=== PATIENT | female | born 1965 | race Caucasian/White ===

== ENCOUNTER 2017-08-20 13:05 | Inpatient (IN) | payer OTHER ==
[~2017-08-20] VITALS: Ht 152.4 cm; Wt 56.7 kg
--- NOTE | 2017-08-20 13:05 | NUR ---
1300--Patient taken to bed 03 via wheelchair.
--- NOTE | 2017-08-20 13:05 | NUR ---
1308--Dr. Mistry at bedside to evaluate patient.
--- NOTE | 2017-08-20 13:15 | NUR ---
52 YO FEMALE BIB FAMILY VIA PRIVATE VEHICLE NON RESPONSIVE. TAKEN TO BED 3 VIA WHEELCHAIR MD AT BEDSIDE. USED SYRINGE FOUND IN BRA. FAMILY N/V/D; SKIN IS PINK/WARM/DRY; LUNGS CLEAR BL; HR EVEN AND REGULAR; PT DENIES ANY FEVER, CP, SOB, OR COUGH AT THIS TIME; NO C/O PAIN AT THIS TIME; VSS; PATIENT POSITIONED FOR COMFORT; HOB ELEVATED; BEDRAILS UP X2; BED DOWN. ER MD MADE AWARE OF PT STATUS.
[2017-08-20] MEDS ORDERED: NALOXONE 0.4 MG/ML VIAL ONE (13:19)
[2017-08-20] MEDS ORDERED: NACL 0.9% 1,000 ML IV ONE ×2 (13:20→14:20)
[2017-08-20] MEDS ORDERED: ONDANSETRON 4 MG/2 ML VIAL IVP ONE (13:20)
[2017-08-20] MEDS ORDERED: NALOXONE PFS 2 MG/2 ML SYR IVP ONE (13:20)
[2017-08-20 13:22] VITALS: BP 126/98
[2017-08-20] MEDS ORDERED: NALOXONE PFS 2 MG/2 ML SYR ONE (13:28)
[2017-08-20] MEDS ORDERED: ONDANSETRON 4 MG/2 ML VIAL ONE (13:29)
--- NOTE | 2017-08-20 13:33 | NUR ---
XRAY at bedside.
[2017-08-20 13:38] LABS: BASOPHILS # (AUTO) 0.3 K/uL (0.00-0.22); EOSINOPHILS # (AUTO) 0.2 K/uL (0-0.4); LYMPHOCYTES # (AUTO) 2.4 K/uL (2.5-16.5); MEAN CORPUSCULAR HEMOGLOBIN 26 pg (27-31); MEAN CORPUSCULAR HGB CONC 32 g/dL (33-37); MEAN CORPUSCULAR VOLUME 80 fL (80-94); MONOCYTES # (AUTO) 0.7 K/uL (0.8-1.0); NEUTROPHILS # (AUTO) 4.7 K/uL (1.8-7.7); PLATELET COUNT (AUTO) 486 K/uL (140-450); RED BLOOD CELL COUNT(AUTO) 4.27 MIL/uL (4.20-5.40); RED CELL DISTRIBUTION WIDTH 17.7 % (11.6-13.7); WHITE BLOOD COUNT (AUTO) 8.3 K/uL (4.8-10.8)
[2017-08-20 13:41] LABS: BILIRUBIN,URINE NEGATIVE (NEGATIVE); BLOOD, URINE NEGATIVE (NEGATIVE); COLOR,URINE YELLOW (YELLOW); LEUKOCYTE ESTERASE ,URINE 1+ (NEGATIVE); NITRITE, URINE NEGATIVE (NEGATIVE); PH,URINE 7.5 (5.0-9.0); UGLUCOSE NEGATIVE (NEGATIVE)
[2017-08-20] MEDS ORDERED: cefTRIAXone 1,000 MG VIAL ONE (13:58)
[2017-08-20 13:59] LABS: BARBITURATE, URINE NEG. ng/ml (NEG <=200); BENZODIAZEPINE, URINE POS. ng/mL (NEG <=200); CANNABINOID, URINE NEG. ng/mL (NEG <=50); COCAINE, URINE NEG. ng/mL (NEG <=300); OPIATE, URINE POS. ng/mL (NEG <=2000); PHENCYCLIDINE SCREEN,URINE POS. ng/mL (NEG <=25)
[2017-08-20 14:02] LABS: APPEARANCE,URINE HAZY (CLEAR)
[2017-08-20 14:03] LABS: ALBUMIN 2.9 g/dL (3.4-5.0); ANION GAP 9.8 (8-16); ASPARTATE AMINOTRANSFERASE 22 U/L (15-37); CHLORIDE 106 mmol/L (98-107); CREATININE 0.8 mg/dL (0.6-1.3); GFR ARICAN-AMERICAN 96 mL/min (>90); GLUCOSE 98 mg/dL (74-106); POTASSIUM 3.8 mmol/L (3.5-5.1); SALICYLATE < 2.8 mg/dL (2.8-20.0); SODIUM SERUM 143 mmol/L (136-145); TOTAL BILIRUBIN 0.3 mg/dL (0.0-1.0); UREA NITROGEN, BLOOD 14 mg/dL (7-18)
[2017-08-20 14:03] LABS: RBC,URINE NONE SEEN /HPF (0-5); WBC,URINE 60-80 /HPF (0-5)
[2017-08-20 14:04] LABS: ACETAMINOPHEN < 0.5 ug/ml (10-30)
[2017-08-20] MEDS ORDERED: FLUMAZENIL 0.5 MG/5 ML VIAL IVP ONE (14:10)
[2017-08-20] MEDS: NACL 0.9% 1,000 ML IV SCH ×2 (14:28→21:41)
[2017-08-20] MEDS ORDERED: ONDANSETRON 4 MG/2 ML VIAL IVP PRN (14:30)
[2017-08-20] MEDS ORDERED: ACETAMINOPHEN 325 MG TAB PO PRN (14:30)
--- NOTE | 2017-08-20 14:36 | NUR ---
Patient will be admitted to care of DR NELSON. Admited to TELE. Will go to room 124A. Belongings list completed. Report to JG CRUZ.
--- NOTE | 2017-08-20 15:01 | NUR ---
RUMACICON NOT GIVEN PER DR ERWIN PT AWAKE MORE RESPONSIVE
[2017-08-20 15:12] LABS: PROTHROMBIN TIME 9.7 secs (10.8-13.4)
--- NOTE | 2017-08-20 15:12 | NUR ---
PT ARRIVED FROM ER IN [facility], PT DROWSY BUT AROUSABLE, ABLE TO ROLL HERSELF OVER FROM [facility] TO BED, ORIENTED X2, SPEAKS WITH SLURRED SPEECH, FALLS RIGHT BACK TO SLEEP, RESP EVEN UNLABORED ON ROOM AIR, SKIN WARM DRY COLOR WNL, VITALS SIGNS STABLE, PT PLACED ON MONITOR, IVF STARTED TO RIGHT FA IV SITE CLEAR, MRSA NARE COLLECTED, PT WITH SCABS TO BILAT INNER CALFS, SWELLING/ERYTHEMA TO LEFT LATERAL THIGH, MULTIPLE HEALING ABRASIONS THROUGH OUT THE BODY, SURGICALLY IMPLANTED CIRCULAR PUMP NOTED TO LEFT LOWER ABD, (NON-FUNCTIONING MORPHINE PUMP PER MD),PT ORIENTED TO ROOM AND FLOOR, CALL BRADY WITHIN REACH, SIDE RAILS UP, BED LOCKED IN LOW POSITION, PLAN OF CARE DISCUSSED PT VERBALIZED UNDERSTANDING, WILL CONTINUE TO MONITOR.
[2017-08-20 15:20] LABS: CHOL/HDL RATIO 3.1 (1-4.5); FREE T4 (FREE THYROXINE) 1.2 ng/dL (0.76-1.46); MAGNESIUM 1.8 mg/dL (1.8-2.4); PHOSPHORUS 4.2 mg/dL (2.5-4.9); THYROID STIMULATING HORMONE 4.06 uIU/mL (0.34-3.74)
--- NOTE | 2017-08-20 15:43 | NUR ---
"/FIANCE" TO BEDSIDE.
[2017-08-20 15:47] VITALS: BP 98/58
[2017-08-20] MEDS ORDERED: LORazepam 2 MG/ML VIAL IM/IVP PRN ×2 (16:05→16:50)
[2017-08-20] MEDS: LACTOBACILLUS RHAMNOSUS GG 1 EACH CAP PO SCH (16:10)
--- NOTE | 2017-08-20 16:30 | NUR ---
DR RITTER AT BEDSIDE.
--- NOTE | 2017-08-20 16:45 | NUR ---
PT UP OUT OF BED AMBULATED WITH ASSIST TO BATHROOM. GAIT SLIGHTLY UNSTEADY, PT INSTRUCTED TO CALL FOR ASSISTANCE WHEN SHE NEEDS TO GO TO BATHROOM, PT VERBALIZED FULL UNDERSTANDING, WILL CONTINUE TO MONITOR.
--- NOTE | 2017-08-20 19:25 | NUR ---
REPORT GIVEN TO TIMBER HAND NURSE, PT IN STABLE CONDITION.
--- NOTE | 2017-08-20 19:26 | NUR ---
RECEIVED BEDSIDE REPORT FROM DAY SHIFT NURSE ANTHONY RN, PT RESTING, NO DISTRESS NOTED, NO SOB, AAOX4, SIGNIFICANT OTHER BY BEDSIDE, IV TO THE R FA 20G RUNNING NS @150ML/HR. SKIN INTACT WITH SCABS ON BLE, L LATERAL THIGH SWELLING. INITIAL ASSESSMENT DONE, ALL SAFETY PRECAUTION MET. CALL LIGHT WITHIN REACH, WILL CONTINUE TO MONITOR.
[2017-08-20 20:00] VITALS: BP 98/60
[2017-08-20] MEDS: DOCUSATE SODIUM 100 MG GELCAP PO SCH (21:55)
--- NOTE | 2017-08-20 21:58 | NUR ---
DUE MEDICATION GIVEN, PT TOLERATED WELL, NO DISTRESS NOTED,CALL LIGHT WITHIN REACH, WILL CONTINUE TO MONITOR.
[2017-08-20] MEDS: MORPHINE SULFATE 2 MG/ML SYR IVP PRN (23:56)
[2017-08-21] VITALS: BP 100/69
--- NOTE | 2017-08-21 | NUR ---
PT SLEEPING, NO DISTRESS NOTED, CALL LIGHT WITHIN REACH, WILL CONTINUE TO MONITOR.
[2017-08-21] MEDS: NACL 0.9% 1,000 ML IV SCH ×5 (03:29→19:16)
--- NOTE | 2017-08-21 03:29 | NUR ---
DUE MEDICATION GIVEN, PT TOLERATED WELL, NO DISTRESS NOTED, CALL LIGHT WITHIN REACH.
[2017-08-21 06:14] LABS: BASOPHILS # (AUTO) 0.2 K/uL (0.00-0.22); EOSINOPHILS # (AUTO) 0.2 K/uL (0-0.4); EOSINOPHILS % (AUTO) 2.3 % (0.0-4.0); HEMATOCRIT 32.7 % (36-48); HEMOGLOBIN 10.5 g/dL (12.0-16.0); LYMPHOCYTES # (AUTO) 2.5 K/uL (2.5-16.5); LYMPHOCYTES % (AUTO) 25.7 % (20.5-51.1); MEAN CORPUSCULAR HEMOGLOBIN 26 pg (27-31); MEAN CORPUSCULAR HGB CONC 32 g/dL (33-37); MEAN CORPUSCULAR VOLUME 82 fL (80-94); MONOCYTES # (AUTO) 1.2 K/uL (0.8-1.0); MONOCYTES % (AUTO) 12.1 % (1.7-9.3); NEUTROPHILS # (AUTO) 5.5 K/uL (1.8-7.7); NEUTROPHILS % (AUTO) 57.9 % (42.2-75.2); PLATELET COUNT (AUTO) 474 K/uL (140-450); RED BLOOD CELL COUNT(AUTO) 3.98 MIL/uL (4.20-5.40); RED CELL DISTRIBUTION WIDTH 17.8 % (11.6-13.7); WHITE BLOOD COUNT (AUTO) 9.6 K/uL (4.8-10.8)
[2017-08-21 06:33] LABS: ANION GAP 10.6 (8-16); CARBON DIOXIDE 29.2 mmol/L (21-32); CREATININE 0.7 mg/dL (0.6-1.3); POTASSIUM 3.8 mmol/L (3.5-5.1)
[2017-08-21 06:38] LABS: MAGNESIUM 1.8 mg/dL (1.8-2.4); PHOSPHORUS 3.7 mg/dL (2.5-4.9)
[2017-08-21] MEDS: MORPHINE SULFATE 2 MG/ML SYR IVP PRN ×2 (07:08→13:08)
--- NOTE | 2017-08-21 07:15 | NUR ---
ENDORSED PT TO DAY SHIFT NURSE ANTHONY RN. PT RESTING NO DISTRESS NOTED, STABLE.
--- NOTE | 2017-08-21 07:20 | NUR ---
ENDORSEMENT RECEIVED FROM LIBRARY CLERK TALKING BOOKS NURSE. PATIENT IS STABLE. RESPIRATION EVEN, UNLABOR. SKIN WARM AND DRY TO THE TOUCH. CALL LIGHT WITHIN REACH. WILL CONTINUE TO MONITOR
[2017-08-21 08:00] VITALS: BP 125/72
--- NOTE | 2017-08-21 08:00 | NUR ---
PATIENT AWAKE, ALERT, ORIENTE X 4. PUPILS EQUAL REACTIVE TO LIGHT. RESPIRATION EVEN, LUNGS SOUND CLEAR THROUGHOUT. CARDIAC WITH S1, S2 PRESENT. BOWEL SOUND ACTIVE 4 QUADRANTS. SKIN DRY AND WARM. IV 20G RIGHT FOREARM, PATENT AND INTACT WITH NS INFUSING AT 150 ML/HR. DENIED OF PAIN AT THIS TIME. CALL LIGHT WITHIN REACH. WILL CONTINUE TO MONITOR
--- NOTE | 2017-08-21 08:45 | NUR ---
PATIENT HAS BEEN SCREENED AND CATEGORIZED LOW NUTRITION RISK. PATIENT WILL BE SEEN WITHIN 7 DAYS OF ADMISSION. 08/27/[address]
[2017-08-21] MEDS: ATORVASTATIN 20 MG TAB PO SCH (08:58)
[2017-08-21] MEDS: ASCORBIC ACID 500 MG TAB PO SCH (08:58)
[2017-08-21] MEDS: LACTOBACILLUS RHAMNOSUS GG 1 EACH CAP PO SCH (08:59)
[2017-08-21] MEDS: DOCUSATE SODIUM 100 MG GELCAP PO SCH ×2 (08:59→21:15)
[2017-08-21] MEDS ORDERED: PANTOPRAZOLE 40 MG INJ VIAL IVP SCH (09:00)
[2017-08-21] MEDS ORDERED: FERRIC GLUCONATE 125 MG in NACL 0.9% 100 ML IV SCH (09:00)
[2017-08-21] MEDS: LACTULOSE 20 GM/30 ML UDC PO SCH ×2 (09:02→21:14)
[2017-08-21] MEDS: ASPIRIN 81 MG TAB.CHEW PO SCH (09:02)
--- NOTE | 2017-08-21 10:00 | NUR ---
PATIENT IS SLEEPING COMFORTABLY. NO DISTRESS NOTED. RESPIRATION EVEN, UNLABOR. CALL LIGHT WITHIN REACH. WILL CONTINUE TO MONITOR
[2017-08-21 10:17] LABS: FOLIC ACID 11.5 ng/mL (>3.0)
[2017-08-21 12:00] VITALS: BP 133/87
--- NOTE | 2017-08-21 12:30 | NUR ---
PATIENT WAS BACK AND CT SCAN, AND NOW EATING LUNCH. PATIENT IS STABLE, NO DISTRESS NOTED. RESPIRATION EVEN. CALL LIGHT WITHIN REACH. WILL CONTINUE TO MONITOR
--- NOTE | 2017-08-21 14:22 | NUR ---
PATIENT IS ASLEEP COMFORTABLY. RESPIRATION EVEN, UNLABOR. NO DISTRESS NOTED AT THIS TIME. CALL LIGHT WITHIN REACH. WILL CONTINUE TO MONITOR
--- NOTE | 2017-08-21 14:58 | NUR ---
U/S TECH IS AT BEDSIDE. PATIENT IS STABLE, NO DISTRESS NOTED. WILL CONTINUE TO MONITOR
[2017-08-21] MEDS ORDERED: LIDOCAINE 2% 1000 MG/50 ML VIAL INJ SCH (15:55)
[2017-08-21 16:00] VITALS: BP 132/83
[2017-08-21] MEDS ORDERED: LIDOCAINE/EPI 2% 1:100000 20 ML VIAL INJ SCH (16:05)
--- NOTE | 2017-08-21 16:05 | NUR ---
PATIENT WAS SLEEPING COMFORTABLY, EASILY AROUSABLE. RESPIRATION EVEN, NO DISTRESS NOTED. CALL LIGTH WITHIN REACH. WILL CONTINUE TO MONITOR
[2017-08-21] MEDS ORDERED: FERRIC GLUCONATE 125 MG in NACL 0.9% 100 ML IV ONE (16:25)
[2017-08-21] MEDS ORDERED: MAGNESIUM CITRATE 300 ML BTL PO SCH (17:00)
--- NOTE | 2017-08-21 17:00 | NUR ---
DR. RITTER WAS AT BEDSIDE, DOING I&D. WOUND CULTURE SENT TO LAB
--- NOTE | 2017-08-21 17:59 | NUR ---
PATIENT IS EATING DINNER. RESPIRATION EVEN, NO DISTRESS NOTED. DENIED PAIN AT THIS TIME. IV STILL INFUSING. FAMILY AT BEDSIDE. CALL LIGHT WITHIN REACH. WILL CONTINUE TO MONITOR
[2017-08-21] MEDS: HYDROcodone/APAP 7.5/325 MG 1 TAB PO PRN (19:16)
--- NOTE | 2017-08-21 19:26 | NUR ---
ENDORSEMENT GIVEN TO THE INSIDE POLISHER NURSE. PATIENT IS STABLE. NO DISTRESS NOTED. PAIN MED WAS GIVEN PER ORDER.
--- NOTE | 2017-08-21 19:27 | NUR ---
RECEIVED BEDSIDE REPORT FROM DAY SHIFT NURSE, PT SLEEPING, NO DISTRESS NOTED, NO SOB, AAOX4, IV TO R FA 20G RUNNING NS@150 ML/HR, DRESSING CLEAN DRY AND INTACT, INITIAL ASSESSMENT DONE, SAFETY PRECAUTION MET, CALL LIGHT IN PLACE, SIGNIFICANT OTHER BY BEDSIDE, WILL CONTINUE TO MONITOR.
--- NOTE | 2017-08-21 21:14 | NUR ---
DUE MEDICATION GIVEN, PT TOLERATED WELL, NO DISTRESS NOTED, CALL LIGHT WITHIN REACH, WILL CONTINUE TO MONITOR.
[2017-08-21 23:15] VITALS: BP 123/69
[2017-08-22] VITALS: BP 121/70
--- NOTE | 2017-08-22 | NUR ---
PT C/O OF PAIN ON THE BACK 03/15, V/S WNL, PAIN MEDICATION GIVEN, PT STABLE, NO DISTRESS NOTED, CALL LIGHT WITHIN REACH.
[2017-08-22] MEDS: NACL 0.9% 1,000 ML IV SCH ×4 (01:47→20:48)
--- NOTE | 2017-08-22 02:52 | NUR ---
PT SLEEPING, NO DISTRESS NOTED, CALL LIGHT WITHIN REACH, WILL CONTINUE TO MONITOR.
[2017-08-22 04:00] VITALS: BP 121/76
--- NOTE | 2017-08-22 05:40 | NUR ---
PT SLEEPING, NO DISTRESS NOTED, CALL LIGHT WITHIN REACH, WILL CONTINUE TO MONITOR.
[2017-08-22 06:13] LABS: BASOPHILS # (AUTO) 0.2 K/uL (0.00-0.22); BASOPHILS % (AUTO) 1.8 % (0.0-2.0); EOSINOPHILS # (AUTO) 0.2 K/uL (0-0.4); EOSINOPHILS % (AUTO) 1.7 % (0.0-4.0); HEMATOCRIT 33.3 % (36-48); HEMOGLOBIN 10.9 g/dL (12.0-16.0); LYMPHOCYTES # (AUTO) 2.3 K/uL (2.5-16.5); LYMPHOCYTES % (AUTO) 19.7 % (20.5-51.1); MEAN CORPUSCULAR HEMOGLOBIN 27 pg (27-31); MEAN CORPUSCULAR HGB CONC 33 g/dL (33-37); MEAN CORPUSCULAR VOLUME 81 fL (80-94); MONOCYTES % (AUTO) 8.2 % (1.7-9.3); NEUTROPHILS % (AUTO) 68.6 % (42.2-75.2); PLATELET COUNT (AUTO) 497 K/uL (140-450); RED CELL DISTRIBUTION WIDTH 17.9 % (11.6-13.7); WHITE BLOOD COUNT (AUTO) 11.7 K/uL (4.8-10.8)
[2017-08-22 06:25] LABS: ANION GAP 13.5 (8-16); CARBON DIOXIDE 24.6 mmol/L (21-32); CREATININE 0.6 mg/dL (0.6-1.3); POTASSIUM 3.1 mmol/L (3.5-5.1)
[2017-08-22 06:28] LABS: MAGNESIUM 1.6 mg/dL (1.8-2.4); PHOSPHORUS 3.4 mg/dL (2.5-4.9)
--- NOTE | 2017-08-22 07:03 | NUR ---
GAVE BEDSIDE REPORT TO DAY SHIFT NURSE, ENDORSED PLAN OF CARE TO RN, PT AMBULATES TO THE BATHROOM AND BACK TO BED, TOLERATED WELL, PT STABLE, NO DISTRESS NOTED.
--- NOTE | 2017-08-22 07:05 | NUR ---
RECEIVED REPORT FROM NIGHT RN, PT IN STABLE CONDITION, A/O X 4, PT LYING IN BED ON RA, PT DENIES ANY PAIN, NO S/S OF ACUTE DISTRESS, IV PATENT AND INTACT, PLAN OF CARE DISCUSSED WITH PT, PT VERBALIZED UNDERSTANDING, SAFETY/ SEIZURE PRECAUTIONS TAKEN, CALL LIGHT WITHIN REACH, WILL CONT TO MONITOR.
[2017-08-22 07:52] VITALS: BP 144/92
[2017-08-22] MEDS ORDERED: FERROUS SULFATE 325 MG TABEC PO SCH (08:00)
[2017-08-22] MEDS: LACTOBACILLUS RHAMNOSUS GG 1 EACH CAP PO SCH (08:35)
[2017-08-22] MEDS: ASCORBIC ACID 500 MG TAB PO SCH (08:35)
[2017-08-22] MEDS: SERTRALINE 50 MG TAB PO SCH (08:35)
[2017-08-22] MEDS: ATORVASTATIN 20 MG TAB PO SCH (08:35)
[2017-08-22] MEDS: ASPIRIN 81 MG TAB.CHEW PO SCH (08:35)
[2017-08-22] MEDS: DOCUSATE SODIUM 100 MG GELCAP PO SCH ×2 (08:35→20:48)
[2017-08-22] MEDS: LACTULOSE 20 GM/30 ML UDC PO SCH ×2 (08:36→20:47)
[2017-08-22] MEDS: FERROUS SULFATE 325 MG TABEC PO SCH (08:36)
--- NOTE | 2017-08-22 08:44 | NUR ---
DUE MEDICATIONS GIVEN WITH EDUCATION, PT VERBALIZED UNDERSTANDING, PT TOLERATED WELL, CALL LIGHT WITHIN REACH, WILL CONT TO MONITOR.
[2017-08-22] MEDS ORDERED: ASCORBIC ACID 500 MG TAB PO SCH (09:00)
[2017-08-22] MEDS ORDERED: POTASSIUM CHLORIDE 10 MEQ TABER PO SCH (09:50)
[2017-08-22] MEDS ORDERED: POTASSIUM CHLORIDE 40 MEQ, LIDOCAINE 1% 25 MG in NACL 0.9% 250 ML IV ONE (10:30)
--- NOTE | 2017-08-22 11:55 | NUR ---
PT SLEEPING IN BED ON RA, NO S/S OF ACUTE DISTRESS, CALL LIGHT WITHIN REACH, WILL CONT TO MONITOR.
--- NOTE | 2017-08-22 13:00 | NUR ---
WOUND CARE DONE ORDERED, PT TOLERATED WELL.
--- NOTE | 2017-08-22 15:40 | NUR ---
SPOKE TO PATIENT AT BEDSIDE REGARDING DISCHARGE PLAN . PER PATIENT SHE LIVES WITH FRIEND ,HAS A CANE . FRIENDS WILL PROVIDE TRANSPORT
[2017-08-22 16:00] VITALS: BP 128/86
--- NOTE | 2017-08-22 16:05 | NUR ---
PT SLEEPING IN BED ON RA, NO S/S OF ACUTE DISTRESS, IV PATENT AND INTACT, WILL CONT TO MONITOR.
[2017-08-22] MEDS: HYDROcodone/APAP 7.5/325 MG 1 TAB PO PRN ×2 (17:30)
[2017-08-22 19:16] LABS: CARBON DIOXIDE 26.4 mmol/L (21-32); CREATININE 0.7 mg/dL (0.6-1.3); POTASSIUM 3.4 mmol/L (3.5-5.1)
--- NOTE | 2017-08-22 19:19 | NUR ---
ENDORSED PT TO STRIP MINE SUPERVISOR NURSE AT BEDSIDE FOR CONTINUITY OF CARE, PT STABLE CONDITION.
--- NOTE | 2017-08-22 19:34 | NUR ---
RECIEVED PATIENT 0N BED AWAKE ALERT AND OREINTED BREATHING EVEN AND UNLABORED ON ROOM AIR. WILL CONTINUE MONITOR PATIENT.
[2017-08-22 20:00] VITALS: BP 104/70
[2017-08-22] MEDS ORDERED: oxyCODONE 10 MG TABER PO SCH ×2 (23:05)
[2017-08-23] MEDS ORDERED: oxyCODONE 10 MG TABER PO SCH
[2017-08-23] MEDS: ZOLPIDEM 10 MG TAB PO PRN ×2 (00:46→22:50)
[2017-08-23] MEDS: HYDROcodone/APAP 10/325 MG 1 TAB TAB PO PRN ×4 (00:46→22:50)
[2017-08-23] MEDS: NACL 0.9% 1,000 ML IV SCH ×4 (03:01→22:52)
--- NOTE | 2017-08-23 06:49 | NUR ---
STABLE OVERNIGHT VITAL SIGNS STABLE PAIN CONTROLLED WITH NORCO.
--- NOTE | 2017-08-23 07:15 | NUR ---
RECEIVED REPORT FROM THE BUNCH BREAKER NURSE AT BEDSIDE FOR CONTINUITY OF CARE. PT IS ASLEEP. NO SIGNS OF DISTRESS. IV L FA 20G NS AT 150ML INFUSING. UPDATED THE BOARD. WILL CONTINUE TO MONITOR PT.
[2017-08-23 08:00] VITALS: BP 126/74
[2017-08-23] MEDS: LACTOBACILLUS RHAMNOSUS GG 1 EACH CAP PO SCH (08:43)
[2017-08-23] MEDS: LACTULOSE 20 GM/30 ML UDC PO SCH ×3 (08:43→20:26)
[2017-08-23] MEDS: ATORVASTATIN 20 MG TAB PO SCH (08:43)
[2017-08-23] MEDS: ASCORBIC ACID 500 MG TAB PO SCH (08:44)
[2017-08-23] MEDS: FERROUS SULFATE 325 MG TABEC PO SCH (08:44)
[2017-08-23] MEDS: SERTRALINE 50 MG TAB PO SCH (08:44)
[2017-08-23] MEDS: DOCUSATE SODIUM 100 MG GELCAP PO SCH ×2 (08:44→20:26)
[2017-08-23] MEDS: ASPIRIN 81 MG TAB.CHEW PO SCH (08:45)
--- NOTE | 2017-08-23 08:54 | NUR ---
ADMINISTERED MORNING MEDS. HELD LACTULOSE PER PT'S REFUSAL. PT TOLERATED WELL. DR MCCALLUM HERE DOING ROUNDS. WOULD LIKE TO KEEP HER HERE FOR ANOTHER DAY FOR CULTURE RESULTS.
--- NOTE | 2017-08-23 12:10 | NUR ---
MOVED PT FROM ROOM 108A TO 112A. GOT ALL PERSONAL BELONGINGS AND MOVED TO ROOM 112A. BOYFRIEND HERE. MET ALL NEEDS AT THIS TIME. NO SIGNS OF DISTRESS. WILL CONTINUE TO MONITOR PT.
--- NOTE | 2017-08-23 13:30 | NUR ---
WOUND CARE DONE. DRESSING FELL OFF FROM THIS MORNING. WOUND HAS CLOSED. CANNOT PACK. NOTIFIED MD. CLEANED WITH NORMAL SALINE, PATTED DRY AND PUT [place]LAND DRESSING. WOUND IS STILL PINK, ALL AROUND, STILL INFLAMMATION, WARM TO TOUCH. PT TOLERATED WELL.
--- NOTE | 2017-08-23 14:15 | NUR ---
ADMINISTERED ROCEPHIN. PT TOLERATED WELL. PT RESTING COMFORTABLY. BOYFRIEND AT BEDSIDE. WILL CONTINUE TO MONITOR PT.
[2017-08-23 16:00] VITALS: BP 132/91
--- NOTE | 2017-08-23 17:41 | NUR ---
PT RESTING COMFORTABLY. NO SIGNS OF DISTRESS. BOYFRIEND AT BEDSIDE. WILL CONTINUE TO MONITOR PT.
--- NOTE | 2017-08-23 19:15 | NUR ---
ENDORSED PT TO THE APPLIANCE REPAIRER NURSE AT BEDSIDE FOR CONTINUITY OF CARE. PT IS IN STABLE CONDITION.
--- NOTE | 2017-08-23 19:16 | NUR ---
RECEIVED PT AWAKE CONVERSING WITH VISITOR AT BEDSIDE, AAOX4, IVF INFUSING WELL, DENIES ANY PAIN, PLAN OF CARE DISCUSSED, CALL LIGHT WITHIN REACH.
--- NOTE | 2017-08-23 20:27 | NUR ---
PT REFUSE DUE MEDS, RISK AND BENEFITS EXPLAINED, BUT STILL REFUSING, ALL NEEDS ATTENDED.
--- NOTE | 2017-08-23 23:00 | NUR ---
PT AWAKE, VITAL SIGNS STABLE, MEDICATED PRN WITH AMBIEN FOR SLEEP AND NORCO FOR PAIN, CONTINUE TO MONITOR CLOSELY.
[2017-08-24] VITALS: BP 138/78
--- NOTE | 2017-08-24 03:30 | NUR ---
ROUNDED ON PT, SLEEPING, NO SIGNS OF DISTRESS, IVF INFUSING WELL, MONITORED CLOSELY.
[2017-08-24] MEDS: NACL 0.9% 1,000 ML IV SCH ×2 (05:41→13:02)
[2017-08-24] MEDS: HYDROcodone/APAP 10/325 MG 1 TAB TAB PO PRN ×2 (06:26→14:44)
--- NOTE | 2017-08-24 06:26 | NUR ---
AM LABS DRAWN, MEDICATED PRN FOR PAIN WITH NORCO, NO DISTRESS NOTED, IVF INFUSING WELL, MONITORED CLOSELY.
--- NOTE | 2017-08-24 07:10 | NUR ---
PT SLEEPING, NO SIGNS OF DISTRESS, REPORT GIVEN TO JG HEATH FOR CONTINUITY OF CARE.
--- NOTE | 2017-08-24 07:15 | NUR ---
RECEIVED REPORT FROM GLOST PLACER NURSE, PT IS SLEEPING IN BED, A/OX4, AMBULATORY, PT HAS IV ON THE LEFT FOREARM, PATENT, INTACT, FLUSHING WELL, NO S/S OF RESPIRATORY DISTRESS OR DISCOMFORT NOTED, DISCUSSED PLAN OF CARE WITH PT, PT VERBALIZED UNDERSTANDING, SAFETY/FALL PRECAUTIONS ARE IN PLACE, CALL LIGHT WITHIN REACH, WILL CONTINUE TO MONITOR.
[2017-08-24 07:18] LABS: BASOPHILS # (AUTO) 0.3 K/uL (0.00-0.22); BASOPHILS % (AUTO) 3.2 % (0.0-2.0); EOSINOPHILS # (AUTO) 0.4 K/uL (0-0.4); EOSINOPHILS % (AUTO) 3.5 % (0.0-4.0); LYMPHOCYTES % (AUTO) 39.3 % (20.5-51.1); MEAN CORPUSCULAR HEMOGLOBIN 27 pg (27-31); MEAN CORPUSCULAR HGB CONC 34 g/dL (33-37); MEAN CORPUSCULAR VOLUME 81 fL (80-94); MONOCYTES # (AUTO) 0.7 K/uL (0.8-1.0); MONOCYTES % (AUTO) 6.9 % (1.7-9.3); NEUTROPHILS # (AUTO) 4.8 K/uL (1.8-7.7); NEUTROPHILS % (AUTO) 47.1 % (42.2-75.2); PLATELET COUNT (AUTO) 482 K/uL (140-450); RED BLOOD CELL COUNT(AUTO) 4.05 MIL/uL (4.20-5.40); WHITE BLOOD COUNT (AUTO) 10.2 K/uL (4.8-10.8)
[2017-08-24 07:31] LABS: ANION GAP 11.2 (8-16); CARBON DIOXIDE 26.8 mmol/L (21-32); CREATININE 0.7 mg/dL (0.6-1.3)
[2017-08-24] MEDS ORDERED: KCL 20 MEQ/WATER INJ PREMIX 200 ML IV ONE (07:35)
[2017-08-24] MEDS ORDERED: POTASSIUM CHLORIDE 40 MEQ, LIDOCAINE 1% 25 MG in NACL 0.9% 250 ML IV SCH (07:50)
[2017-08-24 08:00] VITALS: BP 128/80
[2017-08-24] MEDS ORDERED: MAGNESIUM OXIDE 400 MG TAB PO SCH (08:00)
[2017-08-24] MEDS: ASPIRIN 81 MG TAB.CHEW PO SCH (08:54)
[2017-08-24] MEDS: SERTRALINE 50 MG TAB PO SCH (08:54)
[2017-08-24] MEDS: FERROUS SULFATE 325 MG TABEC PO SCH (08:54)
[2017-08-24] MEDS: LACTOBACILLUS RHAMNOSUS GG 1 EACH CAP PO SCH (08:55)
[2017-08-24] MEDS: ATORVASTATIN 20 MG TAB PO SCH (08:55)
[2017-08-24] MEDS: DOCUSATE SODIUM 100 MG GELCAP PO SCH (08:55)
[2017-08-24] MEDS: ASCORBIC ACID 500 MG TAB PO SCH (08:56)
[2017-08-24] MEDS: LACTULOSE 20 GM/30 ML UDC PO SCH (09:00)
--- NOTE | 2017-08-24 13:00 | NUR ---
WOUND CARE DONE, PT TOLERATED WELL. WILL CONTINUE TO MONITOR.
[2017-08-24] MEDS ORDERED: LEVO750T2 PO ×2 (14:11→15:48)
[2017-08-24] MEDS ORDERED: LACT10CA1 PO ×2 (14:30→15:48)
--- NOTE | 2017-08-24 15:45 | NUR ---
DISCHARGE INSTRUCTIONS GIVEN, INFORMATION ON ALCOHOL/SUBSTANCE ABUSE GIVEN, INSTRUCTIONS ON WOUND CARE GIVEN, ID WRIST BAND REMOVED, IV REMOVED, CATHETER TIP INTACT. PATIENT'S BOYFRIEND IS AT BEDSIDE.
[2017-08-24 16:32] LABS: CARBON DIOXIDE 29.3 mmol/L (21-32); CREATININE 0.7 mg/dL (0.6-1.3); POTASSIUM 3.3 mmol/L (3.5-5.1)
--- NOTE | 2017-08-24 16:45 | NUR ---
PT STABLE UPON DISCHARGE ACCOMPANIED BY HER BOYFRIEND.
== END 2017-08-24 16:45 | disposition home or self-care (01) | DRG 907 ==
LOC: MED 13:05 → MTU 14:38
PROVIDERS: ADMIT Family Medicine; ATTEND Family Medicine
PROC: 0J9M0ZZ Drainage of Left Upper Leg Subcutaneous Tissue and Fascia, Open Approach (ICD-10-PCS; principal; 2017-08-21)
DX: T50.991A Poisoning by other drugs, medicaments and biological substances, accidental (unintentional), initial encounter (principal); G92 Toxic encephalopathy; E44.0 Moderate protein-calorie malnutrition; F33.2 Major depressive disorder, recurrent severe without psychotic features; E87.0 Hyperosmolality and hypernatremia; D69.6 Thrombocytopenia, unspecified; K50.90 Crohn's disease, unspecified, without complications; L03.116 Cellulitis of left lower limb; N39.0 Urinary tract infection, site not specified; F15.20 Other stimulant dependence, uncomplicated; F11.20 Opioid dependence, uncomplicated; L02.416 Cutaneous abscess of left lower limb; F19.129 Other psychoactive substance abuse with intoxication, unspecified; E87.8 Other disorders of electrolyte and fluid balance, not elsewhere classified; E83.42 Hypomagnesemia; K72.90 Hepatic failure, unspecified without coma; K59.00 Constipation, unspecified; E87.6 Hypokalemia; K63.89 Other specified diseases of intestine; D64.9 Anemia, unspecified; F17.200 Nicotine dependence, unspecified, uncomplicated; F12.90 Cannabis use, unspecified, uncomplicated; G89.29 Other chronic pain; M54.9 Dorsalgia, unspecified; Z98.891 History of uterine scar from previous surgery; Z85.07 Personal history of malignant neoplasm of pancreas; Z88.6 Allergy status to analgesic agent; Z68.24 Body mass index [BMI] 24.0-24.9, adult; Z59.0 Homelessness; Y92.89 Other specified places as the place of occurrence of the external cause
CPT/HCPCS: 36415; 71010; 76536; 80048; 80053; 80305; 81001; 82040; 82140; 82150; 82607; 82728; 82746; 83036; 83540; 83605; 83690; 83735; 83880; 84100; 84439; 84443; 84484; 85025; 85045; 85610; 85730; 87040; 87070; 87075; 87081; 87086; 87186; 87205; 93308; 93925; 93970; 96361; 96365; 96375; 99285; C1758; G0480; G0482; J0696; J1644; J2001; J2270; J2310; J2405; J2916; J3480; J3490; J7030; J7060; Q0092